=== PATIENT | female | born 1975 | race Caucasian/White ===

== ENCOUNTER 2018-11-07 15:55 | Emergency (ER) | payer OTHER ==
[2018-11-07 16:13] VITALS: TEMP 98.2; BMI 31.4
--- NOTE | 2018-11-07 16:14 | PDOC ---
Rapid Medical Evaluation Chief Complaint: Vaginal Bleeding Time Seen by Provider: 11/07/18 16:10 Medical Evaluation: Allergies Allergy/AdvReac Type Severity Reaction Status Date / Time No Known Allergies Allergy Verified 11/07/18 16:07 11/07/18 16:12 I have performed a brief in-person evaluation of this patient. The patient presents with a chief complaint of: 7 weeks c/o 1 day of vaginal bleeding, changed 2 pads today, (+) mild diffuse lower abdominal discomfort, no burning on urination. Pt does not have care. She does not have an OB yet, just found out that she was on Sunday, she is taking prenatals. Pertinent physical exam findings: Pt in no apparent distress I have ordered the following: CBC, CMP, UCG, beta, UA, Ucx, type n screen, transvaginal sono The patient will proceed to the ED for further evaluation. Discharge Disposition - Diagnosis Vaginal bleeding during - Referrals - Patient Instructions - Post Discharge Activity
--- NOTE | 2018-11-07 17:01 | PDOC ---
History of Present Illness - General Chief Complaint: Vaginal Bleeding Stated Complaint: 6-8WKS/BLEEDING Time Seen by Provider: 11/07/18 16:10 History Source: Patient Exam Limitations: No Limitations - History of Present Illness Travel History: No Initial Comments: 11/07/18 16:58 HISTORY OF PRESENT ILLNESS: This is a 42-year-old with an LMP of 6 and positive home test presents emergency department for evaluation of vaginal bleeding and lower abdominal pain. Patient reports she has used 2 pads today and has noted scant clots in her pads. She reports lower abdominal pain. Gastrointestinal menstrual cramp rated 5/10 which radiates to her back. She denies any dysuria, hematuria, vaginal discharge, rectal bleeding, diarrhea or constipation. No recent travel or sick contacts. PAST MEDICAL HISTORY: Denies past medical history SURGICAL HISTORY: Denies ALLERGIES: No known drug allergies REVIEW OF SYSTEMS General/Constitutional: Denies fever or chills. Denies weakness, weight change. HEENT: Denies change in vision. Denies ear pain or discharge. Denies sore throat. Cardiovascular: Denies chest pain or shortness of breath. Respiratory: Denies cough, wheezing, or hemoptysis. Gastrointestinal: Denies nausea, vomiting, diarrhea or constipation. Denies rectal bleeding. Genitourinary: see HPI Musculoskeletal: Denies joint or muscle swelling or pain. Denies neck or back pain. Skin and breasts: Denies rash or easy bruising. Neurologic: Denies headache, vertigo, loss of consciousness, or loss of sensation. Psychiatric: Denies depression or anxiety. Endocrine: Denies increased thirst. Denies abnormal weight change. Hematologic/Lymphatic: Denies anemia, easy bleeding, or history of blood clots. Allergic/Immunologic: Denies hives or skin allergy. Denies latex allergy. PHYSICAL EXAM General Appearance: Well-appearing, appropriately dressed. No apparent distress , no intoxication. Respiratory/Chest: Lungs CTAB. No shortness of breath, chest tenderness, respiratory distress, accessory muscle use. No crackles, rales, rhonchi, stridor , wheezing, dullness Cardiovascular: RRR. S1, S2. No JVD, murmur, bradycardia, tachycardia. Vascular Pulses: Dorsalis-Pedis (R): 2+, Dorsalis-Pedis (L): 2+ Gastrointestinal/Abdominal: Normal bowel sounds. Abdomen soft, non-distended. No tenderness or rebound tenderness. No organomegaly, pulsatile mass, guarding, hernia, hepatomegaly, splenomegaly. Past History - Past Medical History Allergies/Adverse Reactions: Allergies Allergy/AdvReac Type Severity Reaction Status Date / Time No Known Allergies Allergy Verified 11/07/18 16:07 Home Medications: Ambulatory Orders NK [No Known Home Medication] 11/07/18 COPD: No - Suicide/Smoking/Psychosocial Hx Smoking Status: No Smoking History: Never smoked Number of Cigarettes Smoked Daily: 0 Hx Alcohol Use: No Drug/Substance Use Hx: No *Physical Exam - Vital Signs Last Vital Signs Temp Pulse Resp BP Pulse Ox 98.2 F 88 18 110/70 96 11/07/18 16:08 11/07/18 16:08 11/07/18 16:08 11/07/18 16:08 11/07/18 16:08 - Physical Exam Female Pelvic Exam: positive: normal external exam, cervical os closed, normal adnexa, vaginal bleeding (no pooling present. some clots present.). negative: CMT ED Treatment Course - LABORATORY CBC & Chemistry Diagram: 11/07/18 17:58 11/07/18 17:58 Medical Decision Making - Medical Decision Making 11/07/18 17:00 A/P: 42-year-old woman with vaginal bleeding in early Differential diagnosis includes but is not limited to-ectopic , missed , threatened , incomplete , vaginal trauma, normal menses, infection Labs including beta hCG and type and screen Urinalysis, urine culture Transvaginal ultrasound Reassess 11/07/18 21:58 Transvaginal ultrasound as read by Dr. Lane: 0.3 cm spherical fluid structure seen within the endometrial canal possibly representing a true gestational sac at approximately 4 weeks 6 days. No associated yolk sac or embryonic pole is identified at this time. If she were gestational sac associated with ectopic is probably less likely. Left ovarian cyst Beta hCG 539. I will discharge the patient home with strict return precautions and to return to this emergency Department in 2 days for repeat lab testing and imaging. I discussed the physical exam findings, ancillary test results and final diagnoses with the patient. I answered all of the patient's questions. The patient was satisfied with the care received and felt comfortable with the discharge plan and treatment plan. The patient will call their primary care physician within 24 hours to arrange follow-up and will return to the Emergency Department with any new, persistent or worsening symptoms. *DC/Admit/Observation/Transfer Diagnosis at time of Disposition: Vaginal bleeding during - Discharge Dispostion Disposition: HOME Condition at time of disposition: Stable Decision to Admit order: No - Referrals - Patient Instructions Additional Instructions: Take your vitamins. Tylenol for pain. Follow funeral sales manager's instructions for appropriate dosage. Keep well-hydrated. Avoid tobacco and alcohol as well as illegal drugs. Return to the emergency department in 2 days for repeat blood and ultrasound. Return to the emergency department immediately for severe pain, vaginal bleeding that requires more than 2 pads per hour or for any other symptoms. Thank you very much for choosing us to provide your emergent health care needs. - Post Discharge Activity
[2018-11-07 18:21] LABS: BASO % 0.6 % (0-2.0); EOS % 2.8 % (0-4.5); HEMATOCRIT 39.9 % (32.4-45.2); HEMOGLOBIN 13.5 GM/dL (10.7-15.3); LYMPH % 24.1 % (8-40); MCH 28.4 pg (25.7-33.7); MCHC 33.9 g/dl (32.0-36.0); MEAN CELL VOLUME 83.6 fl (80-96); MEAN PLT VOLUME 7.7 fl (7.5-11.1); MONO % 7.3 % (3.8-10.2); NEUT % 65.2 % (42.8-82.8); PLATELET COUNT 266 K/MM3 (134-434); RBC 4.78 M/mm3 (3.60-5.2); RDW 13.3 % (11.6-15.6); WHITE BLOOD COUNT 8.8 K/mm3 (4.0-10.0)
[2018-11-07 18:45] LABS: ALBUMIN 3.9 g/dl (3.4-5.0); BILIRUBIN,TOTAL 0.3 mg/dL (0.2-1); CALCIUM 8.8 mg/dL (8.5-10.1); CREATININE 0.7 mg/dL (0.55-1.3); POTASSIUM 3.8 mmol/L (3.5-5.1); TOT PROT 7.9 g/dl (6.4-8.2)
[2018-11-07 18:56] LABS: EPI CELLS 0.8 /HPF (0-5/HPF); HYALINE CASTS 1 /lpf (0-8); PH,URINE 6.5 (5.0-8.0); URINE APPEARANCE CLEAR; URINE BACTERIA 3.4 /hpf (NEGATIVE); URINE BILIRUBIN NEGATIVE (NEGATIVE); URINE COLOR YELLOW; URINE GLUCOSE (UA) NEGATIVE (NEGATIVE); URINE KETONE NEGATIVE (NEGATIVE); URINE LEUK ESTERASE NEGATIVE (NEGATIVE); URINE NITRITE NEGATIVE (NEGATIVE); URINE PROTEIN NEGATIVE (NEGATIVE); URINE RBC 8 /hpf (0-4); URINE UROBILINOGEN 0.2 mg/dL (0.2-1.0); URINE WBC 0 /hpf (0-5)
[2018-11-07 19:36] VITALS: BP 118/78; PULSE 74
== END 2018-11-07 22:34 | disposition home or self-care (01) ==
LOC: JER 15:55
DX: O26.891 Other specified pregnancy related conditions, first trimester (principal); O20.8 Other hemorrhage in early pregnancy; O34.81 Maternal care for other abnormalities of pelvic organs, first trimester; N83.292 Other ovarian cyst, left side; Z3A.01 Less than 8 weeks gestation of pregnancy
CPT/HCPCS: 36415; 76817-TC; 80053; 81003; 84702; 84703; 85025; 86850; 86900; 86901; 87086; 99284-25

== ENCOUNTER 2021-03-07 06:30 | Inpatient (IN) | payer OTHER ==
[2021-03-07] MEDS ORDERED: ELECTROLYTE-148 SOLN 500 ML IV ONE (06:45)
[2021-03-07] MEDS ORDERED: CITRIC ACID/SODIUM CITRATE 30 ML UNIT-DOSE CUP PO ONE (06:53)
[2021-03-07] MEDS ORDERED: ELECTROLYTE-148 SOLN 1,000 ML IV SCH (07:15)
[2021-03-07 07:25] VITALS: BMI 33.9
[2021-03-07] MEDS ORDERED: ONDANSETRON 4 MG/2 ML VIAL IVPUSH PRN (07:52)
[2021-03-07] MEDS ORDERED: ceFAZolin SODIUM 1 GM VIAL ONE (08:03)
[2021-03-07] MEDS ORDERED: PHENYLEPHRINE HCL 10 MG/1 ML SINGLE DOSE VIAL ONE (08:04)
[2021-03-07] MEDS ORDERED: OXYTOCIN 10 UNITS/ML VIAL ONE ×2 (08:33→08:50)
[2021-03-07] MEDS ORDERED: IBUPROFEN 800 MG/8 ML IJ IVPB PRN (09:28)
[2021-03-07] MEDS ORDERED: METHYLERGONOVINE MALEATE 0.2 MG/1 ML AMP IM PRN (09:28)
[2021-03-07] MEDS ORDERED: WITCH HAZEL 50% (TUCKS) 40 PAD/JAR PAD TP PRN (09:28)
[2021-03-07] MEDS ORDERED: BENZOCAINE 20% 57 GM BOTTLE TP PRN (09:28)
[2021-03-07] MEDS ORDERED: BENZOCAINE 28 GM HEMORRHOIDAL OINTMENT TP PRN (09:28)
[2021-03-07] MEDS: OXYTOCIN 20 UNITS in 0.9% NS 20 UNIT/1,000 ML INFUS.BAG IV SCH ×2 (10:32→18:38)
[2021-03-07] MEDS ORDERED: OXYTOCIN 20 UNITS in 0.9% NS 20 UNIT/1,000 ML INFUS.BAG IV ONE (10:33)
[2021-03-07] MEDS ORDERED: IBUPROFEN 800 MG/8 ML IJ IVPB ONE (10:38)
[2021-03-07] MEDS: ACETAMINOPHEN 325 MG TABLET (FP) PO PRN (13:57)
[2021-03-07] MEDS ORDERED: oxyCODONE HCL 5 MG TABLET PO PRN (21:28)
[2021-03-08] MEDS: ACETAMINOPHEN 325 MG TABLET (FP) PO PRN (01:56)
[2021-03-08] MEDS: IBUPROFEN 600 MG TABLET (FP) PO PRN ×3 (01:57→20:46)
[2021-03-08] MEDS: SIMETHICONE 80 MG TAB.CHEW (FP) PO PRN ×3 (01:58→20:46)
[2021-03-08 07:11] LABS: BASO % 0.5 % (0-2.0); EOS % 1.6 % (0-4.5); HEMATOCRIT 31.5 % (32.4-45.2); HEMOGLOBIN 10.5 GM/dL (10.7-15.3); LYMPH % 13.1 % (8-40); MCH 26.7 pg (25.7-33.7); MCHC 33.2 g/dl (32.0-36.0); MEAN CELL VOLUME 80.5 fl (80-96); MONO % 5.9 % (3.8-10.2); NEUT % 78.9 % (42.8-82.8); PLATELET COUNT 160 10^3/uL (134-434); RBC 3.91 M/mm3 (3.60-5.2); RDW 16.2 % (11.6-15.6); WHITE BLOOD COUNT 7.6 K/mm3 (4.0-10.0)
[2021-03-08] MEDS ORDERED: BISACODYL 10 MG SUPP.RECT RC PRN (09:28)
[2021-03-08] MEDS ORDERED: FLU VACC QS2021-22(6MOS UP)/PF 60 MCG/0.5 ML SYRINGE IM ONE (10:00)
[2021-03-08] MEDS ORDERED: DIPHTH,PERTUSS(ACELL),TET 0.5 ML DISP.SYRIN IM ONE (10:00)
[2021-03-09] MEDS: IBUPROFEN 600 MG TABLET (FP) PO PRN ×2 (11:09→15:42)
[2021-03-09] MEDS: SIMETHICONE 80 MG TAB.CHEW (FP) PO PRN ×2 (11:09→15:42)
[2021-03-10 08:04] LABS: BASO % 0.6 % (0-2.0); EOS % 2.6 % (0-4.5); HEMATOCRIT 32.4 % (32.4-45.2); HEMOGLOBIN 10.8 GM/dL (10.7-15.3); MCH 26.8 pg (25.7-33.7); MCHC 33.4 g/dl (32.0-36.0); MEAN CELL VOLUME 80.4 fl (80-96); MEAN PLT VOLUME 8.1 fl (7.5-11.1); MONO % 6.3 % (3.8-10.2); NEUT % 73.5 % (42.8-82.8); PLATELET COUNT 225 10^3/uL (134-434); RBC 4.03 M/mm3 (3.60-5.2); RDW 16.6 % (11.6-15.6); WHITE BLOOD COUNT 7.3 K/mm3 (4.0-10.0)
[2021-03-10] MEDS: ACETAMINOPHEN 325 MG TABLET (FP) PO PRN (09:39)
[2021-03-10 11:30] VITALS: BP 108/72; PULSE 80; TEMP 98.3
== END 2021-03-10 14:00 | disposition home or self-care (01) | DRG 540 ==
LOC: JLDR 06:30 → J3W 10:50
PROVIDERS: ADMIT Obstetrics & Gynecology; ATTEND Obstetrics & Gynecology
PROC: 10D00Z1 Extraction of Products of Conception, Low, Open Approach (ICD-10-PCS; principal; 2021-03-07)
PROC: 0DNW0ZZ Release Peritoneum, Open Approach (ICD-10-PCS; 2021-03-07)
PROC: 0UL70ZZ Occlusion of Bilateral Fallopian Tubes, Open Approach (ICD-10-PCS; 2021-03-07)
DX: O34.219 Maternal care for unspecified type scar from previous cesarean delivery (principal); Z3A.39 39 weeks gestation of pregnancy; Z37.0 Single live birth; K66.0 Peritoneal adhesions (postprocedural) (postinfection); Z30.2 Encounter for sterilization
CPT/HCPCS: 36415; 80053; 85025; 85610; 86780; 86850; 86900; 86901; 88302-TC; 88307-TC; 90686; 90715; C9803; G0008; U0003; U0005